=== PATIENT | male | born 1955 | race Caucasian/White ===

== ENCOUNTER 2019-12-28 08:35 | Outpatient (REF) | payer OTHER, SELFPAY ==
[2019-12-28 08:55] LABS: COVID-19 Test Negative (Negative)
== END 2019-12-28 08:36 | disposition home or self-care (01) ==
LOC: HO.LAB 08:35
PROVIDERS: Visit Provider Internal Medicine
DX: Z20.828 Contact with and (suspected) exposure to other viral communicable diseases (principal)
CPT/HCPCS: 87635